=== PATIENT | female | born 1995 | race Caucasian/White ===

== ENCOUNTER 2020-04-05 12:25 | Outpatient (REF) | payer BC, SELFPAY ==
[2020-04-05 14:41] LABS: Hematocrit 39.7 % (37-47); Hemoglobin 13.2 g/dl (12.0-16.0); Mean Corpuscular HGB Conc 33.2 g/dl (31.0-35.0); Mean Corpuscular Hemoglobin 29.5 pg (27.0-33.0); Mean Corpuscular Volume 88.6 fL (80-98); Mean Platelet Volume 9.4 fL (9.4-12.3); Platelet Count 252 X10*3/uL (160-400); Red Blood Count 4.48 X10*6/uL (4.20-5.50); Red Cell Distribution Width 11.7 % (11.0-16.0)
[2020-04-05 14:55] LABS: Appearance Urine CLEAR; Color Urine YELLOW; Glucose Urine UA NEG (NEG); Leukocyte Esterase Urine NEG (NEG); Nitrite Urine NEG (NEG); Specific Gravity - Urine >= 1.030 (1.005-1.025); Urine Blood NEG (NEG); Urine Ketones NEG (NEG); Urine Protein NEG (NEG-TRACE)
[2020-04-05 15:10] LABS: Alanine Aminotransferase 19 U/L (0-31); Albumin Level 4.4 g/dL (3.5-5.0); Alkaline Phosphatase 57 U/L (39-117); Anion Gap 10 (12-20); Aspartate Amino Transferase 18 U/L (5-31); Bilirubin Total 0.5 mg/dL (0.0-1.0); Blood Urea Nitrogen 15 mg/dL (9-16); Calcium 9.1 mg/dL (8.4-10.2); Carbon Dioxide 28 mmol/L (22-29); Chloride 102 mmol/L (96-108); Cholesterol 190 mg/dL; Estimated Glomerular Filt Rate > 60; Glucose Fasting 80 mg/dL (60-99); HDL Cholesterol 77 mg/dL; Iron 130 mcg/dL (30-160); LDL Cholesterol Calculated 104 mg/dl; Percent Iron Saturation 29 % (15-50); Sodium 136 mmol/L (135-145); Total Iron Binding Capacity 441 mcg/dL (228-428); Total Protein 7.4 g/dL (6.5-8.0); Triglycerides 48 mg/dL; Unsaturated Iron Binding 311 ug/dL
== END 2020-04-05 12:26 | disposition home or self-care (01) ==
LOC: HO.HMGCLDS 12:25
PROVIDERS: PCP Internal Medicine; Visit Provider Internal Medicine
DX: Z00.00 Encounter for general adult medical examination without abnormal findings (principal)
CPT/HCPCS: 36415; 80053; 80061; 81003; 83540; 85027; 87086

== ENCOUNTER 2020-05-16 10:21 | Outpatient (REF) | payer BC, SELFPAY | END 2020-05-16 10:22 | disposition home or self-care (01) | LOC: HO.HMGCLDS 10:21 | PROVIDERS: PCP Internal Medicine; Visit Provider Internal Medicine | DX: Z20.828 Contact with and (suspected) exposure to other viral communicable diseases (principal) | CPT/HCPCS: C9803; U0003 ==

== ENCOUNTER 2020-05-21 11:58 | Outpatient (REF) | payer BC, SELFPAY | END 2020-05-21 11:59 | disposition home or self-care (01) | LOC: HO.LAB 11:58 | PROVIDERS: Visit Provider Internal Medicine | DX: Z20.828 Contact with and (suspected) exposure to other viral communicable diseases (principal) | CPT/HCPCS: C9803; U0003 ==

== ENCOUNTER 2020-07-25 14:26 | Outpatient (REF) | payer BC, SELFPAY ==
[2020-07-25 16:33] LABS: UPreg QC Valid YES; Urine Pregnancy NEGATIVE (NEGATIVE)
[2020-07-25 17:06] LABS: TSH reflex Free T4 0.53 uIU/mL (0.32-4.0)
== END 2020-07-25 14:27 | disposition home or self-care (01) ==
LOC: HO.HMGCLDS 14:26
PROVIDERS: PCP Internal Medicine; Visit Provider Internal Medicine
DX: N91.2 Amenorrhea, unspecified (principal)
CPT/HCPCS: 36415; 81025; 84443

== ENCOUNTER 2020-08-06 15:30 | Outpatient (REF) | payer BC, SELFPAY ==
--- NOTE | ~2020-08-06 | US_ITS ---
EXAMINATION: PELVIC ULTRASOUND CLINICAL INFORMATION: Amenorrhea. Question ovarian cyst. COMPARISON: None TECHNIQUE: Transabdominal and transvaginal pelvic ultrasound was performed. Transvaginal exam was performed for better visualization of the uterus and ovaries. FINDINGS: The uterus is anteverted and measures 6.9 x 2.6 x 4.3 cm in dimension. No focal uterine lesion is seen. Endometrial thickness is normal measuring 0.3 cm. The cervix is normal appearing. The ovaries are normal in size. The right ovary measures 3.6 x 2.1 x 3.3 cm, volume 13 mL. The left ovary measures 3.3 x 2.5 x 2.5 cm, volume 11 mL. There are multiple peripheral small cysts or follicles seen in both ovaries. Appearance is questionable for polycystic ovarian syndrome. There is trace fluid in the right pelvis. US/US transvaginal IMPRESSION: Normal size ovaries. There is multiple small simple peripheral cysts or follicles in both ovaries questionable for polycystic ovarian syndrome.
--- NOTE | ~2020-08-06 | US_ITS ---
EXAMINATION: PELVIC ULTRASOUND CLINICAL INFORMATION: Amenorrhea. Question ovarian cyst. COMPARISON: None TECHNIQUE: Transabdominal and transvaginal pelvic ultrasound was performed. Transvaginal exam was performed for better visualization of the uterus and ovaries. FINDINGS: The uterus is anteverted and measures 6.9 x 2.6 x 4.3 cm in dimension. No focal uterine lesion is seen. Endometrial thickness is normal measuring 0.3 cm. The cervix is normal appearing. The ovaries are normal in size. The right ovary measures 3.6 x 2.1 x 3.3 cm, volume 13 mL. The left ovary measures 3.3 x 2.5 x 2.5 cm, volume 11 mL. There are multiple peripheral small cysts or follicles seen in both ovaries. Appearance is questionable for polycystic ovarian syndrome. There is trace fluid in the right pelvis. US/US pelvic complete IMPRESSION: Normal size ovaries. There is multiple small simple peripheral cysts or follicles in both ovaries questionable for polycystic ovarian syndrome.
== END 2020-08-06 15:31 | disposition home or self-care (01) ==
LOC: HO.HMGCX 15:30
PROVIDERS: PCP Internal Medicine; Visit Provider Internal Medicine
DX: N91.2 Amenorrhea, unspecified (principal)
CPT/HCPCS: 76830; 76856

== ENCOUNTER 2020-08-22 10:28 | Outpatient (REF) | payer BC, SELFPAY ==
[2020-08-22 12:56] LABS: Thyroid Stimulating Hormone 0.44 uIU/mL (0.32-4.0)
[2020-08-23 07:02] LABS: DHEA Sulfate 450 mcg/dL (18-391)
[2020-08-23 09:42] LABS: CT PCR NOT DETECTED (Not Detect.); NG PCR NOT DETECTED (Not Detect.)
[2020-08-26 17:12] LABS: Testosterone, Free 6.2 pg/mL (0.1-6.4); Testosterone, Total 77 ng/dL (2-45)
== END 2020-08-22 10:29 | disposition home or self-care (01) ==
LOC: HO.LAB 10:28
PROVIDERS: PCP Internal Medicine; Visit Provider Obstetrics & Gynecology
DX: Z11.3 Encounter for screening for infections with a predominantly sexual mode of transmission (principal); E28.2 Polycystic ovarian syndrome
CPT/HCPCS: 36415; 82627; 83498; 84146; 84402; 84403; 84443; 87491; 87591

== ENCOUNTER → 2020-09-11 12:10 | Outpatient (BNVA) | payer BC, SELFPAY | PROVIDERS: PCP Internal Medicine; Visit Provider Obstetrics & Gynecology ==

== ENCOUNTER 2021-07-29 10:31 | Outpatient (REF) | payer BC, SELFPAY ==
[2021-07-30 09:33] LABS: CT PCR NOT DETECTED (Not Detect.); NG PCR NOT DETECTED (Not Detect.)
[2021-07-30 10:05] LABS: BV Int Neg Control Negative (Negative); BV Int Pos Control Positive (Positive)
== END 2021-07-29 10:32 | disposition home or self-care (01) ==
LOC: HO.LAB 10:31
PROVIDERS: PCP Internal Medicine; Visit Provider Obstetrics & Gynecology
DX: R10.2 Pelvic and perineal pain (principal); N89.8 Other specified noninflammatory disorders of vagina
CPT/HCPCS: 87480; 87491; 87510; 87591; 87660

== ENCOUNTER 2021-07-29 13:44 | Outpatient (REF) | payer BC, SELFPAY ==
--- NOTE | ~2021-07-29 | US_ITS ---
EXAMINATION: US PELVIS CLINICAL INFORMATION: This is a 26-year-old female with pelvic pain. Premenopausal. Right lower quadrant pain. COMPARISON: Comparison is made to a previous study dated 08/06/2020. TECHNIQUE: Ultrasound of the pelvis is performed using both transabdominal and transvaginal transducers along with Doppler. Transvaginal imaging is performed due to inadequate visualization transabdominally. FINDINGS: Uterus: The uterus is anteverted and measures 7.8 x 2.9 x 4.1 cm. The double wall endometrial thickness is 0.5 mm. The uterus is smooth in contour and has normal myometrial echogenicity. No visible fibroid. Adnexa: Both ovaries are visualized. There is normal color flow to the adnexa. There is no ovarian torsion. There is no pelvic ascites or fluid collection. Right ovary measures 3.8 x 2.8 x 3.2 cm. The right ovary volume is 17 mL. Previously, the right ovary measured 3.6 x 2.1 x 3.3 cm. There are at least 11 (and innumerable) subcentimeter follicular--type cysts that line up in a 'string of pearls appearance in the ovary. This was seen previously. Left ovary measures 3.9 x 2.2 x 3.5 cm. The left ovary volume is 15 mL. Previously, the left ovary measured 3.3 x 2.5 x 2.5 cm.. There are at least 11 (and innumerable) subcentimeter follicular--type cysts that line up in a 'string of pearls appearance in the ovary. This was seen previously. US/US pelvic and transvaginal IMPRESSION: 1. Normal-appearing uterus. 2. Findings which can be seen in polycystic ovarian syndrome.
== END 2021-07-29 13:45 | disposition home or self-care (01) ==
LOC: HO.HMGCX 13:44
PROVIDERS: Visit Provider Obstetrics & Gynecology
DX: R10.2 Pelvic and perineal pain (principal)
CPT/HCPCS: 76830; 76856

== ENCOUNTER → 2021-08-12 16:09 | Outpatient (BNVA) | payer BC, SELFPAY | PROVIDERS: PCP Internal Medicine; Visit Provider Obstetrics & Gynecology | DX: Z13.89 Encounter for screening for other disorder (principal) ==

== ENCOUNTER → 2021-08-25 15:50 | Outpatient (BNVA) | payer BC, SELFPAY | PROVIDERS: PCP Internal Medicine; Visit Provider Obstetrics & Gynecology | DX: Z13.89 Encounter for screening for other disorder (principal) ==

== ENCOUNTER 2021-11-17 15:17 | Outpatient (REF) | payer BC, SELFPAY ==
--- NOTE | ~2021-11-17 | US_ITS ---
EXAMINATION: US VENOUS ULTRASOUND WITH DOPPLER LOWER EXTREMITY, RIGHT CLINICAL INFORMATION: Right lower extremity pain and numbness COMPARISON: None TECHNIQUE: Ultrasound of the deep veins is performed from the hip to the calf with compression sonography and color and pulse Doppler assessment. Spectral analysis with color-flow imaging is performed. FINDINGS: There is normal venous compression and respiratory variation and augmented flow. The visualized common femoral vein, superficial femoral vein, profunda femoral vein, popliteal vein, and the trifurcation region shows no evidence of deep venous thrombosis. There is no significant popliteal fossa cyst. The contralateral left common femoral vein is unremarkable If the patient's symptoms persist, followup ultrasound in 5 days 7 days might be of value to exclude proximal propagation from a non-visualized calf vein. US/US venous duplex LE RT IMPRESSION: No DVT demonstrated in the right lower extremity.
== END 2021-11-17 15:18 | disposition home or self-care (01) ==
LOC: HO.HMGCX 15:17
PROVIDERS: Visit Provider Internal Medicine
DX: M79.661 Pain in right lower leg (principal); R60.0 Localized edema
CPT/HCPCS: 93971